=== PATIENT | male | born 1945 | race Caucasian/White ===

== ENCOUNTER 2017-05-13 12:03 | Emergency (ER) | payer MEDICARE, BC ==
[~2017-05-13] VITALS: Ht 160 cm; Wt 103.3 kg
[~2017-05-13 12:03] MED LIST: DIGO250T17 PO; IRBE150T27 PO; NEBI20TA2 PO; OMEP40CA37 PO; RIVA15TA PO
[2017-05-13 13:02] VITALS: BP 158/95
[2017-05-13] MEDS ORDERED: FLO0.4C PO (15:01)
[2017-05-13] MEDS ORDERED: HYDR-565 PO (15:01)
[2017-05-13] MEDS ORDERED: ONDA4TAB9 SL (15:01)
== END 2017-05-13 15:16 | disposition home or self-care (01) ==
LOC: ER 12:03
DX: N20.0 Calculus of kidney (principal); N28.89 Other specified disorders of kidney and ureter; I10 Essential (primary) hypertension; I48.91 Unspecified atrial fibrillation; Z86.718 Personal history of other venous thrombosis and embolism; Z88.0 Allergy status to penicillin; Z88.8 Allergy status to other drugs, medicaments and biological substances; Z79.899 Other long term (current) drug therapy
CPT/HCPCS: 99283